=== PATIENT | male | born 1950 | race Caucasian/White ===

== ENCOUNTER 2025-01-24 10:56 | Outpatient (CLI) | payer MEDICARE, SELFPAY ==
--- NOTE | 2025-01-24 11:15 | CRLHL7_ITS ---
For Patients: As a result of the Century Cures Act, medical imaging exams and procedure reports are released immediately into your electronic medical record. You may view this report before your referring provider. If you have questions, please contact your health care provider. INDICATION: Acute Prerenal Azotemia and new onset hypertension TECHNIQUE: Grayscale, color Doppler and spectral Doppler ultrasound of the kidneys and renal arteries performed. COMPARISON: None available FINDINGS: BILATERAL RENAL ARTERY DUPLEX ULTRASOUND ABDOMINAL AORTA: Peak systolic velocity = 117 cm/s. No aortic aneurysm. RIGHT KIDNEY: 1.4 cm in length. There is no hydronephrosis. Peak systolic velocity = 124 cm/second Renal artery to aortic peak systolic velocity ratio = 1.1 Resistive indices: 0.81 Renal vein = patent LEFT KIDNEY: 9.9 cm in length. There is no hydronephrosis. Peak systolic velocity = 140 cm/second Renal artery to aortic peak systolic velocity ratio = 1.2 Resistive indices: 0.76 Renal vein = patent Simple bilateral renal cysts measure 1.6 x 1.4 x 1.4 cm on the right and 2.6 x 2.2 x 2.4 cm on the left. Nonobstructing right renal calculi. IMPRESSION: No evidence of significant renal artery stenosis. Dictated by Bong Smith MD @ 01/24/2025 6:35:04 PM (Electronically Signed)
== END 2025-01-24 10:57 | disposition home or self-care (01) ==
PROVIDERS: PCP Family Medicine; Visit Provider Family Medicine
DX: N19 Unspecified kidney failure (principal); I10 Essential (primary) hypertension; R79.89 Other specified abnormal findings of blood chemistry
CPT/HCPCS: 76775; 93975